=== PATIENT | female | born 2005 | race African-American/Black ===

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

== ENCOUNTER 2024-03-06 11:13 | Emergency (ER) | payer OTHER ==
[2024-03-06] MEDS ORDERED: Acetaminophen 500 MG TAB ONE (12:03)
[2024-03-06] MEDS ORDERED: Ondansetron ODT 4 MG TAB ONE (12:03)
[2024-03-06 12:53] LABS: Influenza A by NAA Not Detected (NotDetected); Influenza B by NAA Not Detected (NotDetected); SARS-CoV-2 NAA Rapid Test Not Detected (NotDetected)
== END 2024-03-06 13:32 | disposition home or self-care (01) ==
LOC: CSHERS 11:13
DX: B34.9 Viral infection, unspecified (principal)
CPT/HCPCS: 87081; 87430; 99283; Q0162